=== PATIENT | female | born 1980 | race Caucasian/White ===

== ENCOUNTER 2017-03-06 22:23 | Emergency (ER) | payer OTHER ==
[2017-03-06 22:29] VITALS: BP 116/70; BMI 32.4
[2017-03-06] MEDS ORDERED: ZOFRAN INJ 4 MG VIAL IVP ONE (22:47)
[2017-03-06] MEDS ORDERED: ZOFRAN INJ 4 MG VIAL ONE (22:48)
[2017-03-06] MEDS ORDERED: NS 1000 ML 1,000 ML IV ONE (22:54)
--- NOTE | 2017-03-06 22:55 | DR.NAUSEAF ---
HPI - Time Seen Time seen: 22:53 - Primary Care Physician Primary Care Physician: MANUEL - Complaints Chief Complaint Doctors Comments: Agree with statement. Chief Complaint:: N/V SINCE WEDNESDAY, HAS NOT HAD A BOWEL MOVEMENT IN 1 WEEK. HEADACHE SINCE WEDNESDAY. LAST FEW TIMES I VOMITED IT LOOKED LIKE COFFEE GROUNDS. - Source History Provided: Patient - Mode of Arrival Mode of Arrival: Ambulatory - Timing Onset of Chief Complaint: 03/04/17 PMH - PMH Past Medical History: Yes Past Medical History: Kidney Stones Past Surgical History: Yes Surgical History: , Cholecystectomy - Family History History of Family Medical Conditions: Yes Family Medical History: Diabetes Mellitus - Social History Type of Tobacco Use: None Does any household member use tobacco: No Alcohol Use: None Do you use any recreational Drugs:: No Lives With: Spouse Lives Where: Home - infectious screening Have you traveled outside the country in the last 6 months?: No Isolation: Standard ROS - Review of Systems Eyes: No Symptoms Reported ENTM: No Symptoms Reported Respiratoy: No Symptoms Reported Cardiovascular: No Symptoms Reported Gastrointestinal/Abdominal: No Symptoms Reported, Abdominal Pain Genitourinary: See HPI, Dysuria Neurological: No Symptoms Reported Musculoskeletal: No Symptoms Reported Integumentary: No Symptoms Reported Hematologic/Lymphatic: No Symptoms Reported Endocrine: No Symptoms Reported Psychiatric: No Symptoms Reported All Other Systems: Reviewed and Negative PE - Vital Signs Vitals: Temperature 97.6 F Pulse Rate 106 Respiratory Rate 18 Blood Pressure 116/70 O2 Sat by Pulse Oximetry 99 - General General Appearance: Alert, In No Apparent Distress - Head Head Exam: Normal Inspection, Atraumatic - Eyes Eye exam: Normal Appearance, PERRL, EOMI - ENT ENT Exam: Normal Exam - Chest Chest Inspection: Normal Inspection - Respiratory Respiratory Exam: Normal Lung Sounds Bilat Respiratory Exam: Bilateral Clear to Auscultation - Cardiovascular Cardiovascular Exam: Regular Rate, Normal Rhythm - Abdominal Exam Abdominal Exam: Normal Inspection Abdominal Tenderness: RUQ, RLQ, LUQ, LLQ, Suprapubic, Diffuse - Rectal Rectal Exam: Deferred - External Exam: Female: Normal External Exam, Deferred : Speculum Exam (Female): Deferred : Bimanual Exam (female): Deferred Course - Reevaluation 1st: Improved ROR - Labs Reviewed Laboratory Results Reviewed?: Yes (urine: Leuk 3+;WBC 20-35;bld 5+, low pot; inc bun,cr) Result Diagrams: 03/06/17 22:53 03/06/17 22:53 Laboratory: WBC 17.4 X10^3/uL (3.6-10.0) H 03/06/17 22:53 RBC 3.63 X10^6/uL (3.5-5.4) 03/06/17 22:53 Hgb 9.9 g/dL (12.0-16.0) L 03/06/17 22:53 Hct 30.7 % (36.0-47.0) L 03/06/17 22:53 MCV 84.4 fL (80.0-100.0) 03/06/17 22:53 MCH 27.3 pg (27.0-34.0) 03/06/17 22:53 MCHC 32.4 g/dL (33.0-35.0) L 03/06/17 22:53 RDW 17.2 % (11.6-16.5) H 03/06/17 22:53 Plt Count 71 X10^3/uL (150.0-450.0) L 03/06/17 22:53 Plt Count Comment Decreased (ADEQUATE) A 03/06/17 22:53 MPV 10.2 fL (7.4-11.0) 03/06/17 22:53 Neut % 91.3 % (42.0-75.0) H 03/06/17 22:53 Lymph % 4.0 % (21.0-51.0) L 03/06/17 22:53 [place] % 4.1 % (0.0-13.0) 03/06/17 22:53 Eos % 0.4 % (0.9-2.9) L 03/06/17 22:53 Baso % 0.2 % (0.2-1.0) 03/06/17 22:53 Neut # 15.9 x10^3/uL (2.2-4.8) H 03/06/17 22:53 Lymph # 0.7 X10^3/uL (1.3-2.9) L 03/06/17 22:53 [place] # 0.7 x10^3/uL (0.3-0.8) 03/06/17 22:53 Eos # 0.1 x10^3/uL (0.0-0.2) 03/06/17 22:53 Baso # 0.0 X10^3/uL (0.0-0.1) 03/06/17 22:53 Absolute Nucleated RBC 0.1 /100WBC 03/06/17 22:53 Total Counted 100 03/06/17 22:53 Neutrophils % (Manual) 95 % (39-76) H 03/06/17 22:53 Band Neutrophils % 1 % (0-10) 03/06/17 22:53 Lymphocytes % (Manual) 2 % (13-43) L 03/06/17 22:53 Monocytes % (Manual) 2 % (4-9) L 03/06/17 22:53 Plt Morphology Comment Normal (NORMAL) 03/06/17 22:53 RBC Morphology Normal (NORMAL) 03/06/17 22:53 Sodium 143 mmol/L (136-145) 03/06/17 22:53 Corrected Sodium TNP 03/06/17 22:53 Potassium 3.2 mmol/L (3.5-5.1) L 03/06/17 22:53 Chloride 111 mmol/L (98-107) H 03/06/17 22:53 Carbon Dioxide 15.4 mmol/L (21-32) L 03/06/17 22:53 BUN 28 mg/dL (7-18) H 03/06/17 22:53 Creatinine 2.58 mg/dL (0.55-1.02) H 03/06/17 22:53 Est GFR (MDRD) Af Amer 27 (>60) L 03/06/17 22:53 Est GFR (MDRD) Non-Af 22 (>60) L 03/06/17 22:53 Glucose 105 mg/dL (65-99) H 03/06/17 22:53 Calcium 8.5 mg/dL (8.5-10.1) 03/06/17 22:53 Corrected Calcium 9.8 mg/dL (8.5-10.1) 03/06/17 22:53 Total Bilirubin 0.40 mg/dL (0.2-1.0) 03/06/17 22:53 AST 11 Units/L (15-37) L 03/06/17 22:53 ALT 13 Units/L (12-78) 03/06/17 22:53 Alkaline Phosphatase 105 Units/L (46-116) 03/06/17 22:53 Total Protein 8.1 g/dL (6.4-8.2) 03/06/17 22:53 Albumin 2.4 g/dL (3.4-5.0) L 03/06/17 22:53 Globulin 5.7 g/dL (2.5-4.5) H 03/06/17 22:53 Albumin/Globulin Ratio 0.4 Ratio (1.1-2.1) L 03/06/17 22:53 Amylase 76 Units/L (25-115) 03/06/17 22:53 Lipase 482 Units/L (73-393) H 03/06/17 22:53 Specimen Type Clean catch urine 03/06/17 23:05 Urine Color Yellow (YELLOW) 03/06/17 23:05 Urine Appearance Cloudy (CLEAR) 03/06/17 23:05 Urine pH 7.0 (5.0 - 8.0) 03/06/17 23:05 Ur Specific [place] 1.010 (1.000-1.030) 03/06/17 23:05 Urine Protein 3+ (NEGATIVE) 03/06/17 23:05 Urine Glucose (UA) Negative (NEGATIVE) 03/06/17 23:05 Urine Ketones Negative (NEGATIVE) 03/06/17 23:05 Urine Occult Blood 4+ (NEGATIVE) 03/06/17 23:05 Urine Nitrite Negative (NEGATIVE) 03/06/17 23:05 Urine Bilirubin Negative (NEGATIVE) 03/06/17 23:05 Urine Urobilinogen Normal (NORMAL) 03/06/17 23:05 Ur Leukocyte Esterase 3+ (NEGATIVE) 03/06/17 23:05 Urine RBC 15-20 /HPF (NEGATIVE) 03/06/17 23:05 Urine WBC 20-25 /HPF (NEGATIVE) 03/06/17 23:05 Ur Squamous Epith Cells Few /HPF (NEGATIVE) 03/06/17 23:05 Urine Bacteria 2+ /HPF (NEGATIVE) 03/06/17 23:05 Ur Culture Indicated? Yes/culture set up 03/06/17 23:05 Streptococcus Screen Negative (NEGATIVE) 03/06/17 23:05 - XRAY XRAY Interpreted by: Radiologist (Abd: There are numerous bilateral renal calcifications measuring up to 1.1 cm in diameter. There is column of calcifications seen along the left lateral aspect of the lower lumbar spine and sacrum consistent with numerous left ureteral stones. Several small calcifications are clustered in the upper abdomen on the left which may represent pancreas calcifications. The bowel gas pattern is non obstructed.) - Diagnosis Discharge Problem: Dehydration, Hypokalemia UTI (urinary tract infection) Qualifiers: Urinary tract infection type: acute cystitis Hematuria presence: with hematuria Qualified Code(s): N30.01 - Acute cystitis with hematuria - Discharge Plan Condition: Stable - Follow ups/Referrals Follow ups/Referrals: Bro Jin [Primary Care Provider] - 3 days - Instructions
[2017-03-06] MEDS ORDERED: NS 1000 ML 1,000 ML ONE (22:57)
[2017-03-06] MEDS ORDERED: TORADOL 30 MG VIAL IVP ONE (22:59)
[2017-03-06] MEDS ORDERED: TORADOL 30 MG VIAL ONE (23:00)
[2017-03-06 23:07] LABS: BASOPHILS % (AUTO) 0.2 % (0.2-1.0); EOSINOPHILS # (AUTO) 0.1 x10^3/uL (0.0-0.2); EOSINOPHILS % (AUTO) 0.4 % (0.9-2.9); HEMATOCRIT 30.7 % (36.0-47.0); HEMOGLOBIN 9.9 g/dL (12.0-16.0); LYMPHOCYTES # (AUTO) 0.7 X10^3/uL (1.3-2.9); MEAN CORPUSCULAR HEMOGLOBIN 27.3 pg (27.0-34.0); MEAN CORPUSCULAR HGB CONC 32.4 g/dL (33.0-35.0); MEAN CORPUSCULAR VOLUME 84.4 fL (80.0-100.0); MEAN PLATELET VOLUME 10.2 fL (7.4-11.0); MONOCYTES # (AUTO) 0.7 x10^3/uL (0.3-0.8); MONOCYTES % (AUTO) 4.1 % (0.0-13.0); NEUTROPHILS # (AUTO) 15.9 x10^3/uL (2.2-4.8); NEUTROPHILS % (AUTO) 91.3 % (42.0-75.0); PLATELET COUNT 71 X10^3/uL (150.0-450.0); RED BLOOD COUNT 3.63 X10^6/uL (3.5-5.4); RED CELL DISTRIBUTION WIDTH 17.2 % (11.6-16.5); WHITE BLOOD COUNT 17.4 X10^3/uL (3.6-10.0)
[2017-03-06 23:15] LABS: ALANINE AMINOTRANSFERASE 13 Units/L (12-78); ALBUMIN 2.4 g/dL (3.4-5.0); ALKALINE PHOSPHATASE 105 Units/L (46-116); AMYLASE 76 Units/L (25-115); ASPARTATE AMINO TRANSFERASE 11 Units/L (15-37); BLOOD UREA NITROGEN 28 mg/dL (7-18); CALCIUM 8.5 mg/dL (8.5-10.1); CARBON DIOXIDE 15.4 mmol/L (21-32); CHLORIDE 111 mmol/L (98-107); COR CA(FOR HYPOALB) 9.8 mg/dL (8.5-10.1); CREATININE 2.58 mg/dL (0.55-1.02); GLUCOSE 105 mg/dL (65-99); LIPASE 482 Units/L (73-393); SODIUM 143 mmol/L (136-145); TOTAL PROTEIN 8.1 g/dL (6.4-8.2); eGFR BLACK RACES 27 (>60); eGFR NON BLACK RACES 22 (>60)
--- NOTE | 2017-03-06 23:19 | RAD ---
EXAM: Abdomen x-ray INDICATION: Abdominal pain COMPARISION: No priors TECHNIQUE: AP view, single view FINDINGS: There are numerous bilateral renal calcifications measuring up to 1.1 cm in diameter. There is a col umn of calcifications seen along the left lateral aspect of the lower lumbar spine and sacrum consis tent with numerous left ureteral stones. Several small calcifications are clustered in the upper abd omen on the left which may represent pancreas calcifications. The bowel gas pattern is nonobstructed . Surgical clips are seen in the right upper quadrant. There is an IUD in the mid uterus. The region al skeleton is intact. IMPRESSION: There are numerous bilateral renal and left ureteral stones. The cluster small stones in the left up per quadrant may represent pancreas calcifications. Reported By:
[2017-03-06 23:20] LABS: BILIRUBIN,URINE NEGATIVE (NEGATIVE); BLOOD/HEMOGLOBIN,URINE 4+ (NEGATIVE); GLUCOSE, URINE NEGATIVE (NEGATIVE); KETONES,URINE NEGATIVE (NEGATIVE); LEUKOCYTE ESTERASE ,URINE 3+ (NEGATIVE); NITRITES,URINE NEGATIVE (NEGATIVE); PROTEIN,URINE 3+ (NEGATIVE); UROBILINOGEN,URINE NORMAL (NORMAL)
[2017-03-06 23:27] LABS: APPEARANCE,URINE CLOUDY (CLEAR); COLOR,URINE YELLOW (YELLOW)
[2017-03-06 23:28] LABS: BACTERIA,URINE 2+ /HPF (NEGATIVE); RBC,URINE 15-20 /HPF (NEGATIVE); SQUAMOUS EPITHELIAL CELL,UR FEW /HPF (NEGATIVE)
[2017-03-06 23:36] LABS: BAND NEUTROPHILS % 1 % (0-10)
[2017-03-06 23:37] LABS: PLATELET MORPHOLOGY COMMENT NORMAL (NORMAL)
[2017-03-06] MEDS ORDERED: ROCEPHIN VIAL 1 GM 1 GM in NS 50 ML IV + SPIKE MINIBAG* 50 ML IV SCH (23:45)
[2017-03-06] MEDS ORDERED: K-LYTE EFFERVESCENT PO ONE (23:46)
[2017-03-06] MEDS ORDERED: MORPHINE SULFATE INJ 4 MG IVP ONE (23:47)
[2017-03-06] MEDS ORDERED: ROCEPHIN 1 GM IV PREMIX * OUT OF STOCK 50 ML IV ONE (23:54)
[2017-03-06] MEDS ORDERED: MORPHINE SULFATE INJ 4 MG ONE (23:55)
[2017-03-07] MEDS ORDERED: NS 1000 ML 1,000 ML IV ONE (00:27)
[2017-03-07] MEDS ORDERED: NS 1000 ML 1,000 ML ONE (00:28)
[2017-03-07] MEDS ORDERED: ZOFRAN INJ 4 MG VIAL IVP ONE (01:48)
[2017-03-07] MEDS ORDERED: ZOFRAN INJ 4 MG VIAL ONE (01:48)
== END 2017-03-07 02:16 | disposition home or self-care (01) ==
LOC: ER 22:23
DX: E87.6 Hypokalemia (principal); E86.0 Dehydration; N30.01 Acute cystitis with hematuria; N20.0 Calculus of kidney; N20.1 Calculus of ureter
CPT/HCPCS: 36415; 74000; 80053; 81001; 82150; 83690; 85025; 87070; 87086; 87880; 96365; 96367; 96374; 96375; 99283; A4222; J0696; J1885; J2270; J2405